=== PATIENT | male | born 1975 | race African-American/Black ===

== ENCOUNTER 2020-06-20 09:10 | Emergency (ER) | payer OTHER ==
[~2020-06-20] VITALS: Ht 185.4 cm; Wt 113.4 kg
[2020-06-20 09:15] VITALS: BP 166/105
== END 2020-06-20 09:50 | disposition home or self-care (01) ==
LOC: ER 09:10
DX: I10 Essential (primary) hypertension (principal); Z91.013 Allergy to seafood